=== PATIENT | female | born 1995 | race African-American/Black ===

== ENCOUNTER 2022-12-28 18:00 | Emergency (ER) | payer OTHER ==
[~2022-12-28] VITALS: Ht 172.7 cm; Wt 68.0 kg
[2022-12-28] MEDS ORDERED: DIPHENHYDRAMINE 50MG/ML VIAL IM ONE (18:15)
[2022-12-28] MEDS ORDERED: LORAZEPAM 2MG/ML CPJ IM ONE (18:15)
[2022-12-28] MEDS ORDERED: HALOPERIDOL LACTATE 5MG/ML VIAL IM ONE (18:15)
[2022-12-28 20:32] LABS: BASOPHILS % 0.7 % (0.0-2.0); EOSINOPHILS % 1.4 % (0.0-5.0); HEMATOCRIT. 32.7 % (36.0-48.0); HEMOGLOBIN. 11.1 g/dL (12.0-16.0); LYMPHOCYTES % 28.4 % (20.0-50.0); MEAN CORPUSCULAR HEMOGLOBIN 31.8 pg (28.0-32.0); MEAN CORPUSCULAR VOLUME 93.6 fL (81.0-99.0); MEAN PLATELET VOLUME 8.1 fl (7.4-10.4); MONOCYTES % 10.7 % (2.0-8.0); NEUTROPHILS % 58.8 % (40.0-76.0); PLATELET 291 x1000/uL (130-400); RED CELL DISTRIBUTION WIDTH 13.1 % (11.6-14.6); WHITE BLOOD COUNT 9.1 x1000/uL (4.5-11.0)
[2022-12-28 20:47] LABS: HCG SCREEN NEGATIVE
[2022-12-28 21:04] LABS: CHLORIDE 108 mEq/L (98-107); INDEX HEMOLYSI 1 (1-3); INDEX ICTERIC 1 (1-4); INDEX LIPEMIC 1 (1-3); POTASSIUM 3.7 mEq/L (3.5-5.1); SODIUM 138 mEq/L (136-145)
[2022-12-28 21:11] LABS: ACETAMINOPHEN <2 ug/mL ug/mL (10-30); CALCIUM 8.6 mg/dL (8.5-10.1); CARBON DIOXIDE 27 mEq/L (21-32); CREATININE 0.7 mg/dL (0.6-1.3); ETHANOL BLOOD < 10 mg/dL (<10); GLUCOSE 97 mg/dL (70-105); UREA NITROGEN BLOOD 6 mg/dL (7-21)
[2022-12-28 22:00] VITALS: O2SAT 100
[2022-12-29] MEDS: OLANZAPINE 5MG TABLET ODT PO SCH ×2 (10:45→17:00)
[2022-12-29 13:10] LABS: ECSTASY MDMA SCREEN URINE NEGATIVE (NEGATIVE)
[2022-12-29 15:16] LABS: *AMPHETAMINES SCREEN URINE NEGATIVE (NEGATIVE); *BARBITURATES SCREEN URINE NEGATIVE (NEGATIVE); *BENZODIAZEPINES SCREEN URINE NEGATIVE (NEGATIVE); *COCAINE SCREEN URINE NEGATIVE (NEGATIVE); OPIATES URINE SCREEN NEGATIVE (NEGATIVE); PHENCYCLIDINE URINE SCREEN NEGATIVE (NEGATIVE)
[2022-12-29 18:18] LABS: CANNABINOID URINE SCREEN PRESUMTIVE POSITIVE (NEGATIVE)
[2022-12-30] MEDS: OLANZAPINE 5MG TABLET ODT PO SCH (09:00)
[2022-12-30 13:15] VITALS: BP 126/73; PULSE 82; RESP 16; TEMP 98.2
== END 2022-12-30 15:04 | disposition short-term general hospital (02) ==
LOC: ER 18:00
DX: R45.1 Restlessness and agitation (principal); Z86.59 Personal history of other mental and behavioral disorders; Z20.822 Contact with and (suspected) exposure to COVID-19
CPT/HCPCS: 80305; 80048; 81025; 80307; 80329; 80320; 84703; 85025; 36415; 96372; 99291; 87426; J1200; J1630; J2060; C9803; G0480